=== PATIENT | male | born 1970 | race Caucasian/White ===

== ENCOUNTER 2023-12-12 13:15 | Outpatient (OUT) | payer OTHER, SELFPAY ==
--- NOTE | 2023-12-12 14:03 | ECG_ITS ---
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
[2023-12-12 14:59] LABS: Anion Gap 11.7; BUN Creatinine Ratio 19.1; Calcium 9.3 mg/dL (8.5-10.1); Carbon Dioxide 31.4 mmol/L (21.0-32.0); Chloride 101 mmol/L (98-107); Estimated GFR (African America >60 (>=60); Estimated GFR (Non-African Ame >60 (>=60); Glucose 94 mg/dL (74-106); Potassium 3.1 mmol/L (3.5-5.1); Sodium 141 mmol/L (136-145)
== END 2023-12-12 13:16 | disposition home or self-care (01) ==
LOC: PST 13:18
PROVIDERS: PCP Family Medicine; Visit Provider Surgery
DX: Z01.810 Encounter for preprocedural cardiovascular examination (principal); Z01.812 Encounter for preprocedural laboratory examination; K80.20 Calculus of gallbladder without cholecystitis without obstruction
CPT/HCPCS: 36415; 80048; 93005

== ENCOUNTER 2023-12-17 07:53 | Day surgery (SDC) | payer OTHER, SELFPAY ==
[2023-12-12 13:56] VITALS: BP 117/73; PULSE 74; TEMP 36.2; O2SAT 95; BMI 40.0
[2023-12-17] VITALS (13 sets, daily range): BP systolic 136–168; BP diastolic 80–97; PULSE 78–93; TEMP 36.1–36.2; O2SAT 92–97
[2023-12-17 08:14] LABS: Potassium 3.6 mmol/L (3.5-5.1)
[2023-12-17 08:19] LABS: Glucometer 122 mg/dL (74-106)
[2023-12-17] MEDS: LACTATED RINGER'S SOLUTION 1,000 ML 50 ML IV (08:26)
[2023-12-17] MEDS: INDOCYANINE GREEN 25 MG VIAL 5 MG INJ (08:37)
[2023-12-17] MEDS: CEFAZOLIN SODIUM 3,000 MG in 0.9 % SODIUM CHLORIDE 100 ML 200 MG IV (12:03)
[2023-12-17] MEDS: 0.9 % SODIUM CHLORIDE 10 ML VIAL INJ (12:51)
[2023-12-17] MEDS: BUPIVACAINE LIPOSOME/PF 266 MG/13.3 ML VIAL INJ (12:51)
[2023-12-17] MEDS: BUPIVACAINE HCL 0.5% PF 50 MG/10 ML VIAL 20 ML INJ (12:51)
[2023-12-17] MEDS: LACTATED RINGER'S SOLUTION 1,000 ML 1000 ML IV (13:20)
[2023-12-17] MEDS: OXYCODONE HCL/ACETAMINOPHEN 5MG/325MG 1 TAB PO (15:16)
--- NOTE | 2023-12-17 15:50 | P.GSPRC_ITS ---
Date of procedure: 12/17/23 Indications for Procedure: symptomatic cholelithiasis Pre-op diagnosis: symptomatic cholelithiasis Post-op diagnosis: other (acute on chronic cholecystitis ) Procedure: robotic assisted laparoscopic cholecystectomy The patient was brought to the operative suite and placed in the supine position. A time out was made to verify correct patient, site of procedure and procedure type. A dose of antibiotics were given according to SCIP protocol. EPC cuffs were placed for DVT prophylaxis. A Aimee Hugger was placed to keep the patient euthermic. General anesthesia was given and the patient was intubated with an ET tube per anesthesia. The patient's abdomen was prepped and draped in sterile fashion. The abdomen was entered approximately 12-14 cm distal to the xyophoid process and to the left of the midline. To do this a skin incision was made. A 5mm 0 degree laparoscope was then introduced using an optical access trocar. Pneumoperitoneum was then established through this trocar. Once pneumoperitoneum was created 3 additional 8 mm DA Sandy ports were placed under direct visualization in the mid right, lateral right and left lateral abdomen along the same line just superior to the umbilicus. The 5mm optiview port was then upsized to a 12mm robotic port under direct visualization.?No injuries were noted during port placement and access. The patient was placed in reverse Trendelenburg position with the right side up. The da Sandy machine was then docked and a camera placed without complication. A monopolar hook was then placed in the right arm and a fenestrated bipolar grasper was placed in the left arm. Filmy adhesions between the gallbladder and the omentum were lysed carefully with electrocautery. The fundus of the gallbladder was grasped and directed towards the patient's right shoulder. The infundibulum of the gallbladder was grasped with a bipolar grasper. Of note there where chronic changes associated with prior cholecystitis events and the area was inflamed. The gallbladder was positioned so that the cystic duct was at a right angle to the common bile duct in order to expose Calot's triangle. The peritoneum between the gallbladder and the liver was taken down by electrocautery to further mobilize the triangle. There was an extensive amount of fatty tissue as well which made the dissection difficult. The fibrous tissue was hooked with meticulous electrocautery. Hook electrocautery was used to identify the cystic duct. The cystic duct was skeletonized with electrocautery. Dissection was continued to locate the cystic artery. The cystic artery was skeletonized with electrocau javy. Critical view was obtained in the anterior and posterior window. All fat and fibrous tissue was dissected from the cystohepatic triangle with careful hook electrocautery. The cystic plate of the liver was skeletonized with hook electrocautery. Both the cystic duct and cystic artery were the only structures visualized entering into the gallbladder. Firefly was used to confirm identification of the cystic duct. The cystic duct was ligated with double Hemoclips, and then divided with Endoshears. The cystic artery was ligated with a Hemoclip and divided with Endoshears. The gallbladder was dissected from the liver bed with electrocautery. The gallbladder was then placed into the Endopouch and delivered from the body at the 12mm port incision site. The bed was then inspected. Hemostasis was achieved with electrocautery. The cystic duct and artery stumps were identified. All clips remained on both the cystic artery and the cystic duct stump. No sign of bile leak or bleeding from the duct or artery stump. The da Sandy was undocked from the patient and the abdomen was irrigated with normal saline until clear fluid was returned. The camera and the umbilical port were removed from the abdomen. The 12mm camera port fascia was closed with an 0 Vicryl suture with a needle nose suture passer and a Maximino-Nickolas needle. Working ports were removed. 20 mL of 0.5% Marcaine was infiltrated in skin incisions. All incisions were closed with simple subcuticular 4-0 Monocryl sutures. Incisions were cleaned and dressed with Dermabond. All sponge, needle and instrument counts were correct prior to closure and the patient tolerated the procedure well without any apparent complication. The patient was extubated and then taken to recovery in stable condition. Findings: chronic and partially acutely inflamed gallbladder Anesthesia: GITA Surgeon: Israel Avila Procedure Summary: robotic assisted laparoscopic cholecystectomy Estimated blood loss (mL): 5 Specimens: gallbladder and contents Complications: No Pathology: other (gallbladder and contents ) Condition: stable Disposition: PACU
== END 2023-12-17 16:06 | disposition home or self-care (01) ==
PROVIDERS: Anesthesiology; PCP Family Medicine; Visit Provider Surgery
PROC: (CPT 790; principal; 2023-12-17 09:30)
DX: K80.12 Calculus of gallbladder with acute and chronic cholecystitis without obstruction (principal); E11.9 Type 2 diabetes mellitus without complications; I10 Essential (primary) hypertension; Z79.84 Long term (current) use of oral hypoglycemic drugs; Z79.899 Other long term (current) drug therapy
CPT/HCPCS: 47562; 36415; 82948; 84132; 88304; 99999; J1094; J2704